=== PATIENT | male | born 1935 | race Hispanic/Latino ===

== ENCOUNTER → 2017-06-22 | Outpatient (CLI) | payer OTHER ==
[~2017-06-22] MED LIST: ASPI-1012 PO; HYDR-309 PO
== END | disposition home or self-care (01) ==
LOC: RAH 15:47
PROVIDERS: ATTEND Internal Medicine
DX: Z01.818 Encounter for other preprocedural examination (principal)
CPT/HCPCS: 71046

== ENCOUNTER 2017-07-19 09:18 | Inpatient (IN) | payer OTHER ==
[2017-07-18 16:00] LABS: APPEARANCE,URINE Clear (CLEAR); BILIRUBIN,URINE Negative (NEGATIVE); COLOR,URINE Yellow (YELLOW); GLUCOSE, URINE (UA) Negative (NEGATIVE); KETONES,URINE Negative (NEGATIVE); LEUKOCYTE ESTERASE ,URINE Negative (NEGATIVE); NITRATE,URINE Negative (NEGATIVE); OCCULT BLOOD,URINE Negative (NEGATIVE); PROTEIN,URINE Negative (NEGATIVE)
[2017-07-18 16:01] VITALS: BP 134/67
[2017-07-19] VITALS (27 sets, daily range): BP systolic 119–149; BP diastolic 61–88
[~2017-07-19] VITALS: Ht 167.6 cm; Wt 57.2 kg
[~2017-07-19 09:18] MED LIST changes: -ASPI-1012 PO; -HYDR-309 PO; +WATER FOR INJECTION,STERILE 20 ML VIAL IJ ONE
[2017-07-19] MEDS ORDERED: LACTATED RINGERS 1000ML 1,000 ML IV ONE (09:44)
[2017-07-19] MEDS ORDERED: CEFAZOLIN SODIUM 1 GM VIAL ONE ×2 (09:44→10:37)
[2017-07-19] MEDS: CEFAZOLIN SODIUM 1 GM VIAL IVP ONE ×2 (10:00→11:50)
[2017-07-19] MEDS ORDERED: OXYCODONE HCL 10 MG TAB.SR.12H PO ONE (10:18)
[2017-07-19] MEDS ORDERED: CELECOXIB 200 MG CAP ONE (10:18)
[2017-07-19] MEDS ORDERED: ACETAMINOPHEN EXTRA STRENGTH 500 MG TABLET ONE (10:18)
[2017-07-19] MEDS ORDERED: KETOROLAC TROMETHAMINE 15MG/ML ONE (10:18)
[2017-07-19] MEDS ORDERED: TRANEXAMIC ACID 1000MG/10ML IV ONE (10:37)
[2017-07-19] MEDS ORDERED: EPINEPHRINE 1 MG/ML AMPULE ONE (10:38)
[2017-07-19] MEDS ORDERED: BUPIVACAINE/PF 0.25% 30ML VIAL IJ ONE (10:38)
[2017-07-19] MEDS ORDERED: CEFAZOLIN SODIUM 1 GM VIAL IRRIG ONE (12:20)
[2017-07-19] MEDS ORDERED: EPHEDRINE SULFATE 50 MG/ML AMPULE ONE (12:46)
[2017-07-19] MEDS ORDERED: TRAMADOL HCL 50 MG TABLET PO PRN (13:30)
[2017-07-19] MEDS ORDERED: ONDANSETRON HCL 4 MG/2 ML VIAL IVP PRN (13:30)
[2017-07-19] MEDS ORDERED: CALCIUM CARBONATE 500 MG TABLET PO PRN (13:30)
[2017-07-19] MEDS ORDERED: FERROUS FUMARATE 324 MG TABLET PO PRN (13:30)
[2017-07-19] MEDS ORDERED: POTASSIUM CHLORIDE 20MEQ/100ML 100 ML IV PRN (13:30)
[2017-07-19] MEDS ORDERED: POTASSIUM CHLORIDE 20 MEQ ERTAB PO PRN (13:30)
[2017-07-19] MEDS ORDERED: DiphenhydrAMINE HCL 50 MG/ML VIAL IVP PRN (13:30)
[2017-07-19] MEDS ORDERED: POTASSIUM CHLORIDE 10% ELIXIR 20 MEQ/15 ML UDCUP PO PRN (13:30)
[2017-07-19] MEDS ORDERED: OXYCODONE HCL 5 MG TAB PO PRN (13:30)
[2017-07-19] MEDS ORDERED: LIDOCAINE HCL-MPF 1% 2ML VIAL IVP PRN (13:30)
[2017-07-19] MEDS ORDERED: TEMAZEPAM 15 MG CAPSULE PO PRN (13:30)
[2017-07-19] MEDS ORDERED: GLYCOPYRROLATE 0.2 MG/ML 5 ML VIAL ONE (13:32)
[2017-07-19] MEDS ORDERED: NEOSTIGMINE 5MG/5ML SYR IV ONE (13:34)
[2017-07-19] MEDS ORDERED: MEPERIDINE-PF 50 MG/ML SYG ONE (14:34)
[2017-07-19] MEDS ORDERED: ONDANSETRON HCL MDV 20ML 2 MG/ML VIAL ONE (14:39)
[2017-07-19] MEDS: KETOROLAC TROMETHAMINE 15MG/ML IV PRN (15:26)
[2017-07-19] MEDS: ACETAMINOPHEN EXTRA STRENGTH 500 MG TABLET PO SCH ×2 (15:26→19:43)
[2017-07-19] MEDS: SODIUM CHLORIDE 0.9% 1000ML 1,000 ML IV SCH (15:26)
[2017-07-19] MEDS: CEFAZOLIN SODIUM 1 GM VIAL IVP SCH (17:48)
[2017-07-19] MEDS: OXYCODONE HCL 5 MG TAB PO PRN (17:54)
[2017-07-19] MEDS ORDERED: CEFAZOLIN 2GM / 50 ML 50 ML IV SCH (18:30)
[2017-07-19] MEDS: ASPIRIN 325 MG TABLET PO SCH (19:43)
[2017-07-19] MEDS: CELECOXIB 200 MG CAP PO SCH (19:43)
[2017-07-19] MEDS: PREGABALIN 25 MG CAP PO SCH (19:43)
[2017-07-19] MEDS: FAMOTIDINE 20MG TAB 20 MG TAB PO SCH (19:43)
[2017-07-20] MEDS: SODIUM CHLORIDE 0.9% 1000ML 1,000 ML IV SCH ×2 (00:41→09:18)
[2017-07-20] MEDS: CEFAZOLIN SODIUM 1 GM VIAL IVP SCH (02:17)
[2017-07-20 04:00] VITALS: BP 157/79
[2017-07-20] MEDS: ACETAMINOPHEN EXTRA STRENGTH 500 MG TABLET PO SCH ×3 (04:54→21:35)
[2017-07-20 05:17] LABS: HEMATOCRIT 33.3 % (42-54); MEAN CORPUSCULAR HEMOGLOBIN 35.4 pg (27.0-33.0); MEAN CORPUSCULAR HGB CONC 36.1 g/dL (32.0-36.0); MEAN CORPUSCULAR VOLUME 97.9 fL (79-99); PLATELET COUNT (AUTO) 164 K/uL (130-400); RED CELL DISTRIBUTION WIDTH 13.6 % (11.0-15.5); WHITE BLOOD COUNT (AUTO) 7.8 K/uL (4.8-10.8)
[2017-07-20 05:20] LABS: CREATININE 0.8 mg/dL (0.5-1.5)
[2017-07-20 08:15] VITALS: BP 144/68
[2017-07-20] MEDS: ASPIRIN 325 MG TABLET PO SCH ×2 (09:18→20:55)
[2017-07-20] MEDS: POLYETHYLENE GLYCOL 3350 17 GM POWD.PACK PO SCH (09:18)
[2017-07-20] MEDS: CELECOXIB 200 MG CAP PO SCH ×2 (09:19→21:00)
[2017-07-20] MEDS: FAMOTIDINE 20MG TAB 20 MG TAB PO SCH ×2 (09:19→20:55)
[2017-07-20] MEDS: TAMSULOSIN HCL 0.4 MG CAP.ER.24H PO SCH (09:19)
[2017-07-20] MEDS: PREGABALIN 25 MG CAP PO SCH ×2 (09:21→21:00)
[2017-07-20] MEDS: OXYCODONE HCL 5 MG TAB PO PRN (09:26)
[2017-07-20 11:22] VITALS: BP 143/71
[2017-07-20] MEDS: KETOROLAC TROMETHAMINE 15MG/ML IV PRN (14:09)
[2017-07-20 16:02] VITALS: BP 146/59
[2017-07-20] MEDS ORDERED: ASPI-1012 PO (19:31)
[2017-07-20] MEDS ORDERED: HYDR-309 PO (19:31)
[2017-07-20 20:00] VITALS: BP 134/75
[2017-07-21] VITALS: BP 129/66
[2017-07-21 04:00] VITALS: BP 138/68
[2017-07-21] MEDS: ACETAMINOPHEN EXTRA STRENGTH 500 MG TABLET PO SCH ×2 (04:59→13:38)
[2017-07-21 07:35] VITALS: BP 127/78
[2017-07-21] MEDS: TAMSULOSIN HCL 0.4 MG CAP.ER.24H PO SCH (09:00)
[2017-07-21] MEDS: ASPIRIN 325 MG TABLET PO SCH (09:01)
[2017-07-21] MEDS: FAMOTIDINE 20MG TAB 20 MG TAB PO SCH (09:01)
[2017-07-21] MEDS: CELECOXIB 200 MG CAP PO SCH (09:01)
[2017-07-21] MEDS: POLYETHYLENE GLYCOL 3350 17 GM POWD.PACK PO SCH (09:01)
[2017-07-21] MEDS: PREGABALIN 25 MG CAP PO SCH (09:01)
[2017-07-21] MEDS: KETOROLAC TROMETHAMINE 15MG/ML IV PRN (09:54)
[2017-07-21 11:34] VITALS: BP 122/60
[2017-07-21 16:00] VITALS: BP 113/67
[2017-07-22] MEDS ORDERED: BISACODYL 10 MG SUPP.RECT RC PRN (13:30)
== END 2017-07-21 19:10 | DRG 470 ==
LOC: DAH 09:18 → DAHIP 09:19 → 4AH 14:31 → EDSTATUS 15:00
PROVIDERS: ADMIT Orthopaedic Surgery; ATTEND Orthopaedic Surgery
PROC: 0SRD0J9 Replacement of Left Knee Joint with Synthetic Substitute, Cemented, Open Approach (ICD-10-PCS; principal; 2017-07-19 11:28)
DX: M17.12 Unilateral primary osteoarthritis, left knee (principal); Z96.651 Presence of right artificial knee joint
CPT/HCPCS: 36415; 80048; 81003; 85027; 96374; 97039; A4218; J0171; J0690; J1885; J2175; J2405; J2710; J3490; J7030; J7120